=== PATIENT | female | born 2000 ===

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

== ENCOUNTER 2023-01-20 09:07 | Emergency (ER) | payer BC, OTHER ==
[~2023-01-20] VITALS: Ht 152.4 cm; Wt 45.4 kg
[2023-01-20 09:36] LABS: Urine Bacteria FEW /hpf (None Seen); Urine Blood Negative /uL (Negative); Urine Clarity HAZY (Clear); Urine Color Yellow (Yellow); Urine Mucus FEW (None Seen); Urine Protein, UAD TRACE (Negative); Urine Specific Gravity 1.026 (1.001-1.035); Urine Urobilinogen Normal (Negative); Urine WBC 1 /hpf (0 - 5); Urine pH 5.5 (5.0-8.0)
[2023-01-20 09:41] VITALS: BP 103/67; PULSE 95; RESP 16; O2SAT 97
[2023-01-20] MEDS ORDERED: ACETAMINOPHEN 500 MG TAB PO ONE (10:30)
[2023-01-20] MEDS ORDERED: KETOROLAC TROMETH 30 MG/ML 1ML VIAL IM ONE (10:30)
[2023-01-20 10:39] VITALS: TEMP 98
[2023-01-20] MEDS ORDERED: IBUP1TAB5 PO (11:14)
[2023-01-20] MEDS ORDERED: CYCL-837 PO (11:14)
== END 2023-01-20 11:20 | disposition home or self-care (01) ==
LOC: ER 09:07
DX: S13.4XXA Sprain of ligaments of cervical spine, initial encounter (principal); V43.52XA Car driver injured in collision with other type car in traffic accident, initial encounter; Y93.89 Activity, other specified; Y92.410 Unspecified street and highway as the place of occurrence of the external cause; Y99.8 Other external cause status
CPT/HCPCS: 72070; 81001; 81025; 96372; 99284; J1885